=== PATIENT | male | born 1985 | race Caucasian/White ===

== ENCOUNTER 2019-05-02 12:07 | Emergency (ER) | payer MEDICAID ==
[~2019-05-02] VITALS: Ht 172.7 cm; Wt 77.1 kg
[2019-05-02 12:14] VITALS: BP 94/65
[2019-05-02 12:39] LABS: APPEARANCE,URINE CLEAR (CLEAR); BILIRUBIN,URINE NEGATIVE (NEGATIVE); BLOOD, URINE TRACE-I (NEGATIVE); COLOR,URINE YELLOW (YELLOW); LEUKOCYTE ESTERASE ,URINE TRACE (NEGATIVE); NITRITE, URINE NEGATIVE (NEGATIVE); UGLUCOSE NEGATIVE (NEGATIVE)
[2019-05-02 12:49] LABS: RBC,URINE 0-5 /HPF (0-5)
--- NOTE | 2019-05-02 13:20 | NUR ---
CALLED FOR PT OUTSIDE/LOBBY, NO RESPONSE.
--- NOTE | 2019-05-02 14:08 | NUR ---
PT AMBULATED TO BED 08.
--- NOTE | 2019-05-02 14:20 | NUR ---
C/O PENILE SWELLING AND DISCHARGE STARTING LAST NIGHT. REPORTS RECENT UNPROTECTED SEX. DENIES HX OF STDS, N/V/D/FEVER/ABD PAIN. PT STATES HE IS ABLE TO URINATE WITH MILD DYSURIA. BED ION LOW POSITION, SIDE RAIL UP X1
[2019-05-02] MEDS ORDERED: AZITHROMYCIN 250 MG TAB PO ONE (14:30)
[2019-05-02] MEDS ORDERED: cefTRIAXone 250 MG in LIDOCAINE MPF 1% 0.9 ML IM ONE (14:30)
--- NOTE | 2019-05-02 14:32 | NUR ---
ERMD BEDSIDE EVALUATING PT
[2019-05-02] MEDS ORDERED: cefTRIAXone 250 MG VIAL ONE (14:36)
[2019-05-02] MEDS ORDERED: LIDOCAINE MPF 1% 5 ML ONE (14:37)
[2019-05-02 15:18] VITALS: BP 94/65
[2019-05-04 06:14] LABS: CHLAMYDIA TRACHOMATIS AMP DNA Negative (Negative)
== END 2019-05-02 15:18 | disposition home or self-care (01) ==
LOC: MED 12:07
DX: R36.9 Urethral discharge, unspecified (principal); N47.6 Balanoposthitis; F17.200 Nicotine dependence, unspecified, uncomplicated
CPT/HCPCS: 36415; 81001; 87086; 87491; 96372; 99283; J0696; J2001